=== PATIENT | female | born 1950 | race Caucasian/White ===

== ENCOUNTER 2023-11-06 06:54 | Emergency (ER) | payer MEDICARE, SELFPAY ==
[2023-11-06 07:09] VITALS: BP 178/56; BMI 30.7
[2023-11-06 07:10] VITALS: BP 178/56
--- NOTE | 2023-11-06 07:44 | ED.GENMED ---
History of Present Illness
General
Chief Complaint: Vaginal Bleeding
Time Seen by Provider: 11/06/23 07:22
Travel History
Have you had any contact with someone who has COVID-19?: No
Do you have any symptoms of coronavirus? Fever > 100 degrees, chills, cough, shortness of breath, sore throat, loss of taste or smell, muscle aches, or headache?: No
History of Present Illness
History of Present Illness:
73-year-old female with history of hypertension and hyperlipidemia presents to the emergency department for evaluation of vaginal bleeding, notes passage of blood clots beginning earlier this morning. She also reports urinary urgency and inability
to empty her bladder. No fevers or chills. Denies any nausea or vomiting. Not on any anticoagulants. Notes that 3 to 5 years ago she had endometrial polyps requiring D&C
Past History
Past History
ED Past Medical History: None
Social History
Tobacco: Former smoker
Review of Systems
Review of Systems
Allergies reviewed?: Yes
All Other Systems: ROS reviewed and negative except as documented in HPI and ROS
Phy Exam
Physical Exam
Physical Exam:
GEN: Well appearing, NAD, WDWN
HEENT: Oral mucosa moist, no scleral icterus
Cardiac: Regular rate
Lung: No respiratory distress, no tachypnea
: Exam performed with ARY Miranda at the bedside, moderate bleeding from the vaginal vault noted, no clots, no urethral bleeding
MSK: No gross deformity or injuries
Skin: Good color, no pallor or jaundice, no rashes
Neuro: AO x3, moves all extremities freely
Psych: Calm, cooperative
Course
Orders/Labs/Results
Orders:
Orders
11/06/23 07:44
US Pelvis Transvaginal Only Urgent
Reason For Exam: postmenopausal vag bleeding
11/06/23 07:56
Complete Blood Count/With Diff Urgent
Comprehensive Metabolic Panel Urgent
11/06/23 08:35
Ondansetron Injectable [Zofran] 4 mg IV NOW STA
11/06/23 11:53
Urinalysis Reflex To Culture Urgent
Date Specimen was Collected: 11/06/23
Time Specimen was Collected: 11:52
Urine Microscopic Reflex Cult Urgent
Urine Culture Urgent
JARED Source: U
Specimen Description:
Obtained by: Random
Date Specimen was Collected: 11/06/23
Time Specimen was Collected: 11:52
11/06/23 12:36
CefTRIAXone [Rocephin] 1,000 mg IV NOW STA
Abnormal Lab Results
11/06/23 11/06/23
07:56 11:53
WBC 24.1 H 10^3/uL
(4.8-10.8)
Abs Immat Gran (auto) 0.2 H 10^3/uL
(0-0.05)
Absolute Neuts (auto) 21.1 H 10^3/uL
(1.4-6.5)
Absolute Monos (auto) 1.1 H 10^3/uL
(0.1-0.6)
Immature Gran % 0.8 H %
(0-0.5)
Neutrophils % 87.5 H %
(42.2-75.2)
Lymphocytes % 6.5 L %
(20.5-51.1)
Carbon Dioxide 31 H mmol/L
(22-30)
BUN 26 H mg/dl
(7-17)
Glucose 119 H mg/dl
(70-99)
Calcium 11.1 H mg/dl
(8.4-10.2)
Ur Occult Blood Reflex 4+ A
(Negative)
Leukocyte Esterase Rfl 1+ A
(Negative)
Urine RBC 11-15 A /HPF
(0-2)
Urine WBC (Reflex) 16-20 A /HPF
(0-5)
Urine Bacteria (Reflex) Few A
(Negative)
Urine Albumin (Reflex) 1+ A
(Neg - Trace)
11/06/23 07:56
11/06/23 07:56
Vital Signs
Initial and Last Documented VS:
Initial Vital Signs
BP
178/56
11/06/23 07:09
Last Documented Vital Signs
Temp Pulse Resp BP Pulse Ox
97.9 F 74 22 132/83 92
11/06/23 07:10 11/06/23 08:30 11/06/23 07:10 11/06/23 12:53 11/06/23 08:30
MDM/Problems Addressed
MDM/Problems Addressed:
Patient's urinalysis by straight cath is consistent with UTI. This is likely the etiology to her leukocytosis. Vaginal bleeding appears to be an alternative issue, she has had prior postmenopausal vaginal bleeding that was felt to be due to a
either an endometrial polyp or fibroid and she underwent a D&C approximately 3 to 5 years ago. She will follow-up with [facility] as an outpatient regarding the postmenopausal vaginal bleeding for further endometrial sampling. Despite her significant
leukocytosis patient is clinically well otherwise and I feel is reasonable for outpatient management of her UTI, IV ceftriaxone given in the emergency department and will discharge on a 7-day course of cefdinir
*Critical Care Note
Total Time (30-74mins, 75-104mins- exclusive of procedures): Not Applicable
ED Attending Note
-
Portions of this chart may have been created with voice recognition software.� Occasional wrong word or��sound alike� substitutions may have occurred due to the inherent limitations of voice recognition software.
Discharge Plan
Departure
Patient Disposition: Home (Routine Discharge)
Date of Disposition: 11/06/23
Time of Disposition: 12:36
Patient with high blood pressure during this ER visit?: No
Discharge Problem:
Urinary tract infection, Abnormal vaginal bleeding in postmenopausal patient
Instructions: Urinary Tract Infection, Adult ED
Prescriptions:
New
cefdinir 300 mg capsule
300 mg PO BID 7 Days Qty: 14 0RF
No Action
ondansetron 4 MG tablet,disintegrating
4 mg PO TIDPRN PRN (Reason: NAUSEA) Qty: 12 1RF
Referrals:
Noemi Meza DO [Active] -
Frank Jimenez MD [Family Provider] -
Activity Restrictions/Additional Instructions:
Follow-up with gynecology as listed on the paperwork for evaluation of your vaginal bleeding. This is likely not related to the urinary tract infection and we are treating you for this UTI for the next 7 days
Interventions
Interventions:
*Risk Screen - Suicide Last Done: 11/06/23 06:58
*General Assessment Last Done: 11/06/23 06:58
*Neglect/Abuse Screening Last Done: 11/06/23 06:58
ED- Fall Risk Assessment Last Done: 11/06/23 07:17
*ED COVID-19 Vaccine History Last Done: 11/06/23 06:58
*Nursing Disposition Last Done: 11/06/23 12:53
ED-Female Genitourinary Assessment Last Done: 11/06/23 07:17
Discharge Date and Time
Print Language: TONGAN
[2023-11-06 08:23] LABS: ALT (SGPT) 19 U/L (0-35); AST (SGOT) 21 U/L (14-36); Albumin 4.5 g/dl (3.5-5.0); Alkaline Phosphatase 92 U/L (38-126); Blood Urea Nitrogen 26 mg/dl (7-17); Calcium 11.1 mg/dl (8.4-10.2); Carbon Dioxide 31 mmol/L (22-30); Chloride 102 mmol/L (98-107); Estimated Creatinine Clearance 77 ml/min; Glucose 119 mg/dl (70-99); Potassium 3.5 mmol/L (3.5-5.1); Sodium 141 mmol/L (135-145); Total Bilirubin 0.8 mg/dl (0.2-1.3); Total Protein 7.8 g/dl (6.3-8.2); eGFR > 60.00
[2023-11-06 08:33] LABS: % Basophils 0.3 % (0-2); % Eosinophils 0.3 % (0-6); % Immature Granulocytes 0.8 % (0-0.5); % Lymphocytes 6.5 % (20.5-51.1); % Monocytes 4.6 % (1.7-9.3); % Neutrophils 87.5 % (42.2-75.2); Absolute Basophils 0.1 10^3/uL (0-0.2); Absolute Eosinophils 0.1 10^3/uL (0-0.7); Absolute Immature Granulocytes 0.2 10^3/uL (0-0.05); Absolute Lymphocytes 1.6 10^3/uL (1.2-3.4); Absolute Monocytes 1.1 10^3/uL (0.1-0.6); Absolute Neutrophils 21.1 10^3/uL (1.4-6.5); Hematocrit 45.9 % (37.0-47.0); Hemoglobin 15.5 g/dL (12.0-16.0); Mean Corp Hgb Conc. 33.8 g/dL (33.0-37.0); Mean Corpuscular Volume 88.8 fL (81.0-99.0); Mean Platelet Volume 10.3 fL (7.4-10.4); Nucleated Red Blood Cells % 0 %; Platelet Count 235 10^3/uL (130-400); Red Blood Cell Count 5.17 10^6/uL (4.20-5.40); White Blood Cell Count 24.1 10^3/uL (4.8-10.8)
[2023-11-06] MEDS: ZOFRAN 4 MG IV (08:39)
[2023-11-06 09:00] VITALS: BP 136/51
[2023-11-06 12:10] LABS: Urine Albumin 1+ (Neg - Trace); Urine Bilirubin Negative (Negative); Urine Character Clear (Clear); Urine Color Yellow; Urine Glucose Negative (Negative); Urine Ketone Negative (Negative); Urine Leukocyte 1+ (Negative); Urine Nitrite Negative (Negative); Urine Occult Blood 4+ (Negative); Urine Urobilinogen Negative (Neg - 1+)
[2023-11-06 12:29] LABS: Urine Bacteria Few (Negative); Urine White Cell 16-20 /HPF (0-5)
[2023-11-06 12:30] LABS: Urine Hyaline Cast 0-2 /LPF (0-2)
[2023-11-06] MEDS: ROCEPHIN 1000 MG IV (12:45)
[2023-11-06 12:53] VITALS: BP 132/83
== END 2023-11-06 13:22 | disposition home or self-care (01) ==
LOC: EMR 06:54
PROVIDERS: Physician Assistant; EMERGENCY PHYSICIAN Emergency Medicine; FAMILY PHYSICIAN Internal Medicine
DX: N39.0 Urinary tract infection, site not specified (principal); N93.9 Abnormal uterine and vaginal bleeding, unspecified; Z87.891 Personal history of nicotine dependence
CPT/HCPCS: 99284; 96374; 96375; 76830; 80053; 81003; 81015; 85025; 87071; 87086; 87186